=== PATIENT | male | born 1950 | race Caucasian/White ===

== ENCOUNTER 2016-11-18 07:31 | Day surgery (SDC) | payer MEDICARE, OTHER ==
[~2016-11-18] VITALS: Ht 175.3 cm; Wt 87.1 kg
[~2016-11-18 07:31] MED LIST: ALDACTONE50 MG PO; AMITRIPTYLINE H10 MG PO; ASPIRIN EC325 MG PO; ASPIRIN EC81 MG PO; BENICAR20 MG PO; BENICAR40 MG PO; BIDIL TABLET1 EACH PO; BYSTOLIC10 MG PO; CARDURA1 MG PO; CIPRO500 MG PO; CLARITIN10 M2 PO; CLONIDINE HCL0.1 MG PO; DEMADEX20 MG PO; EFFEXOR XR37.5 MG PO; FAMOTIDINE20 MG PO; FIBER GUMMIES1 EACH PO; FLAGYL500 MG PO; FLOMAX0.4 MG PO; FLUTICASONE PRO16 GM NS; FUROSEMIDE40 MG PO; GABAPENTIN600 MG PO; GLIPIZIDE XL5 MG PO; IMURAN50 MG PO; LANSOPRAZOLE15 MG PO; LISINOPRIL20 MG PO; MEGESTROL ACETA20 MG PO; MELATONIN5 M2 PO; METOPROLOL SUCC25 MG PO; MULTI VITAMIN1 EACH PO; NORCO 5-325 TA1 EACH PO; NORVASC10 MG PO; PERCOCET 5-3251 EACH PO; PHOSLO667 MG PO; PREDNISONE5 MG PO; PROBIOTIC COMP1 EAC1 PO; PROBIOTIC1 EAC1 PO; PROCRIT20000 UNIT IJ; SIMVASTATIN20 MG PO; SODIUM BICARBO650 MG PO; TEMAZEPAM30 MG PO; VITAMIN D5000 UNIT PO; ZOFRAN4 MG PO; ZOFRAN8 MG PO; ZYRTEC10 MG PO
[2016-11-18] MEDS ORDERED: PROGRAF1 MG PO (07:48)
[2016-11-18] MEDS ORDERED: CELLCEPT250 MG PO (07:49)
--- NOTE | 2016-11-20 11:54 | OR ---
[facility] [address], [place] [address] Signed DATE OF SERVICE: 11/18/2016 PREOPERATIVE DIAGNOSES: Change in bowel habits. Constipation, diarrhea. Personal history of colonic polyps. History of sigmoid diverticulitis requiring resection. Internal and external hemorrhoids. Irritable bowel syndrome. Immunosuppression for kidney transplant. POSTOPERATIVE DIAGNOSES: Minimal to moderate left-sided diverticulosis. Widely patent colorectal anastomosis at 20 cm. Moderate internal and external hemorrhoids. PROCEDURE: Colonoscopy without biopsy. ESTIMATED BLOOD LOSS: None. INDICATIONS: Rylan is a 66-year-old gentleman who I have known for many years. 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 He also underwent a sigmoid resection for diverticulitis in the past. His protecting loop ileostomy has since been reversed. His colorectal anastomosis is high around 22 cm. He also has a personal history of adenomatous colonic polyps. He is also known to have internal and external hemorrhoids. He has a history of irritable bowel syndrome and sometimes complains of left lower quadrant abdominal pain. He can have erratic explosive bowel movements. He told me he has Clostridium difficile in the stool, but the toxin was negative. He mentioned both upper and lower endoscopy with Dr. Bennett in 2013. We did not have those reports in our office. He has had ongoing troubles with his bowels and so his company manager wanted him to have a repeat colonoscopy. There is no family history of colon cancer or polyps. I had met with Rylan in the office and we reviewed the above findings. He is very familiar with upper and lower endoscopy. We went through the written instructions for bowel prep. He also understands the need for IV conscious sedation. He had expressed understanding and wished to proceed. PROCEDURE NOTE: Rylan was taken into our endoscopy suite and placed in the left lateral decubitus position. He was given 4 mg of Versed and 100 mcg of fentanyl for the procedure. A Electronically Signed By: DANE ALCALA MD 11/20/16 1154 PATIENT NAME: Arik ISSA OPERATIVE REPORT DATE OF : 50 PHYSICIAN: DANE ALCALA MD REPORT #: [id number] REPORT IS CONFIDENTIAL AND NOT TO BE RELEASED WITHOUT AUTHORIZATION [facility] [address] [place], [place] [address] Signed digital rectal exam was performed and he does have moderate external hemorrhoids. An adult colonoscope was introduced and advanced under direct visualization of the camera into the cecum without difficulty. His prep was moderate. The scope was then slowly withdrawn. We visualized his left-sided diverticulosis. They are moderate in size, minima l -to-moderate in number and scattered about. We found his anastomosis right at about 20 cm. There was a little pocket off to the one side. Given the fact it was an open sigmoid resection and anastomosis is high, I wonder if that is not a hand-sewn anastomosis. It could be a side end anastomosis. Nevertheless, it is well healed. It is widely patent. No evidence of any granulation tissue or ulcerations. The rectum itself was unremarkable. Upon retroflexion of the scope, he does have moderate to significant internal hemorrhoid columns. There is some irritation, but no bleeding at this time. After this, the gas was suctioned out and the colonoscope removed. Rylan tolerated the procedure quite well. RECOMMENDATIONS: Rylan can follow up in 5 years for repeat colonoscopy. MD CARMITA Stewart/Brianna /[id number] cc: MD Joe Stewart MD Fadi H. Akoum, MD Electronically Signed By: DANE ALCALA MD 11/20/16 1154 PATIENT NAME: Arik ISSA OPERATIVE REPORT DATE OF : 50 PHYSICIAN: DANE ALCALA MD REPORT #: [id number] REPORT IS CONFIDENTIAL AND NOT TO BE RELEASED WITHOUT AUTHORIZATION
== END 2016-11-18 10:00 | disposition home or self-care (01) ==
LOC: DS 07:31 → OPS 07:31 → DS 09:45 → OPS 10:00
PROVIDERS: Colon & Rectal Surgery
PROC: 0DJD8ZZ Inspection of Lower Intestinal Tract, Via Natural or Artificial Opening Endoscopic (ICD-10-PCS; principal; 2016-11-18 09:00)
DX: K64.4 Residual hemorrhoidal skin tags (principal); K57.30 Diverticulosis of large intestine without perforation or abscess without bleeding; K64.8 Other hemorrhoids; G47.33 Obstructive sleep apnea (adult) (pediatric); K21.9 Gastro-esophageal reflux disease without esophagitis; J44.9 Chronic obstructive pulmonary disease, unspecified; I12.9 Hypertensive chronic kidney disease with stage 1 through stage 4 chronic kidney disease, or unspecified chronic kidney disease; E11.22 Type 2 diabetes mellitus with diabetic chronic kidney disease; N18.4 Chronic kidney disease, stage 4 (severe); N40.0 Benign prostatic hyperplasia without lower urinary tract symptoms; E78.5 Hyperlipidemia, unspecified; E83.51 Hypocalcemia; E21.3 Hyperparathyroidism, unspecified; M19.90 Unspecified osteoarthritis, unspecified site; D50.9 Iron deficiency anemia, unspecified; Z86.010 Personal history of colon polyps; Z94.0 Kidney transplant status; Z79.82 Long term (current) use of aspirin; Z79.899 Other long term (current) drug therapy; Z85.828 Personal history of other malignant neoplasm of skin; Z99.2 Dependence on renal dialysis; Z93.2 Ileostomy status; Z90.49 Acquired absence of other specified parts of digestive tract; Z98.890 Other specified postprocedural states; Z91.041 Radiographic dye allergy status; Z88.5 Allergy status to narcotic agent; Z79.84 Long term (current) use of oral hypoglycemic drugs
CPT/HCPCS: 99152; 99153; J2250; J3010; J7120

== ENCOUNTER 2022-12-30 12:06 | Emergency (ER) | payer MEDICARE, OTHER ==
[~2022-12-30] VITALS: Ht 175.3 cm; Wt 79.8 kg
--- OUTSIDE RECORDS SUMMARY | ~2022-12-30 | XMS | Continuity of Care Document ---
Demographics + + + | Address | [address] | | | [place] [address] | + + + | Preferred Language | Unknown | + + + | Marital Status | | + + + | Episcopalian Affiliation | Unknown | + + + | Race | White | + + + | Ethnic Group | Not or | + + + Author + + + | Author | [facility] | + + + | Organization | [facility] | + + + | Address | [address] | | | [place], [place] [address] | + + + | Phone | | + + + Care Team Providers + + + + | Care Cemetery Laborer Name | Role | Phone | + + + + Unavailable | Unavailable | + + + + Allergies No information. Encounters No information. Functional Status No information. Immunizations No information. Medications No information. Problems + + + + | date | description | facility | + + + + | 2022-10-04 14:28 | TYPE 2 DIABETES MELLITUS | [facility] | | | WITHOUT COMPLICATIONS | | + + + + | 2022-10-04 14:28 | SLEEP APNEA, UNSPECIFIED | [facility] | + + + + | 2022-10-04 14:28 | HYPERTENSIVE HEART DISEASE | [facility] | | | WITH HEART FAILURE | | + + + + | 2022-10-04 14:28 | HEART FAILURE, UNSPECIFIED | [facility] | | | | | + + + + | 2022-10-04 14:28 | DISORDER OF THE SKIN AND | [facility] | | | SUBCUTANEOUS TISSUE, | | | | UNSPECIFIED | | + + + + | 2022-10-04 14:28 | OTHER LONG-TERM (CURRENT) | [facility] | | | DRUG THERAPY | | + + + + | 2022-10-04 14:28 | ALLERGY STATUS TO OTH | [facility] | | | DRUG/MEDS/BIOL SUBST STATUS | | | | | | + + + + Procedures No information. Results/Labs No information. Social History +--------+ + + | date | description | facility | +--------+ + + Vital Signs No information."
[~2022-12-30 12:06] MED LIST changes: +CELLCEPT250 MG PO; +CEPHALEXIN500 M1 PO; +CHLOR-TRIMETON4 MG PO; +COZAAR25 MG PO; +DAILY VALUE1 EACH PO; +DICYCLOMINE HCL20 MG PO; +EFFEXOR XR150 MG PO; -EFFEXOR XR37.5 MG PO; +EFFEXOR XR75 MG PO; -FIBER GUMMIES1 EACH PO; +FIBER0.52 GM PO; +HYDROCODON-ACE1 EA10 PO; +LORATADINE10 MG PO; -METOPROLOL SUCC25 MG PO; +METOPROLOL TART50 MG PO; -NORVASC10 MG PO; +NORVASC5 MG PO; +PROGRAF1 MG PO; +SPIRONOLACTONE50 MG PO; +TORSEMIDE10 MG PO; +TRAZODONE HCL50 MG PO; +VITAMIN D350 MCG PO; -VITAMIN D5000 UNIT PO
[2022-12-30 12:35] LABS: BASOPHILS 0.5 % (0-2); EOSINOPHILS 2.4 % (0-6); HEMATOCRIT 27.6 % (35.0-50.0); HEMOGLOBIN 8.8 g/dL (12.0-18.0); LYMPHOCYTES 13.3 % (24-44); MCH 28.7 (27-36); MCHC 31.8 g/dl (30-36); MONOCYTES 10.4 % (0-12); NEUTROPHILS 73.4 % (39-80); PLATELET COUNT 154 K/uL (140-440); RBC 3.07 M/ul (4.3-5.7); RDW 17.4 (10.5-15.0)
[2022-12-30 12:54] LABS: ALBUMIN 3.4 g/dL (3.4-5.0); ANION GAP 17.8 (7-21); BILIRUBIN, TOTAL 0.4 ng/dL (0.2-1.0); BUN/CREATININE RATIO 21.14 (6.0-28.6); CALCIUM 8.6 mg/dL (8.5-10.1); CREATININE, SERUM 3.5 mg/dL (0.70-1.30); POTASSIUM 4.8 mmol/L (3.5-5.1); PROTEIN, TOTAL 6.8 g/dL (6.4-8.2)
[2022-12-30] MEDS ORDERED: OXYCODONE HCL5 MG PO (14:23)
[2022-12-30] MEDS ORDERED: ONDANSETRON ODT8 MG PO (14:23)
[2022-12-30] MEDS ORDERED: PROMETHAZINE HC25 M1 PO (14:23)
[2022-12-30 16:01] VITALS: BP 140/62
== END 2022-12-30 16:00 | disposition home or self-care (01) ==
LOC: ED 12:06
PROVIDERS: Emergency Medicine
DX: R51.9 Headache, unspecified (principal); N18.9 Chronic kidney disease, unspecified; D63.1 Anemia in chronic kidney disease; I13.0 Hypertensive heart and chronic kidney disease with heart failure and stage 1 through stage 4 chronic kidney disease, or unspecified chronic kidney disease; E78.00 Pure hypercholesterolemia, unspecified; E11.22 Type 2 diabetes mellitus with diabetic chronic kidney disease; I50.9 Heart failure, unspecified; G47.30 Sleep apnea, unspecified; I48.91 Unspecified atrial fibrillation; Z88.8 Allergy status to other drugs, medicaments and biological substances; Z79.899 Other long term (current) drug therapy
CPT/HCPCS: 36415; 71045; 80053; 83880; 84484; 85025; 96374; 99284-25; A9270; J2405; J7030